=== PATIENT | female | born 1990 | race Caucasian/White ===

== ENCOUNTER 2020-12-16 15:49 | Emergency (ER) | payer MEDICAID ==
[~2020-12-16] VITALS: Ht 167.6 cm; Wt 61.8 kg
--- NOTE | 2020-12-16 16:18 | NUR ---
PT AMBULATORY FROM TRIAGE TO ROOM. PT CHANGED INTO GOWN, MONITORS IN PLACE. PT C/O OF BELL WITH PAIN 04/27. STATED " I DIDNT GET TO THE STORE IN TIME TO GET ADVIL BEFORE MY BELL GOT WORSE." NADN. CALL LIGHT WITHIN REACH
[2020-12-16] MEDS ORDERED: METOCLOPRAMIDE 5 MG/ML, 2ML ONE (17:17)
[2020-12-16] MEDS ORDERED: KETOROLAC 30 MG/1 ML ONE (17:17)
[2020-12-16] MEDS ORDERED: SODIUM CHLORIDE 0.9% 1,000ML IVBOLUS ONE (17:30)
[2020-12-16] MEDS ORDERED: KETOROLAC 30 MG/1 ML IVPush ONE (17:30)
[2020-12-16] MEDS ORDERED: METOCLOPRAMIDE 5 MG/ML, 2ML IVPush ONE (17:30)
--- NOTE | 2020-12-16 17:58 | NUR ---
TASK RN: PT MEDICATED PER EMAR, RESTING ON GURNEY WITH EYES CLOSED & LIGHTS DOWN, NO NEEDS AT THIS TIME, CALL LIGHT WITHIN REACH.
[2020-12-16 19:10] VITALS: BP 122/78
--- NOTE | 2020-12-16 20:16 | NUR ---
chart accessed d/t pt looking for lost phone. throughput rn notified family that phone was with security.
== END 2020-12-16 19:12 | disposition home or self-care (01) ==
LOC: ED 17:55
DX: R51.9 Headache, unspecified (principal); R11.2 Nausea with vomiting, unspecified; R10.9 Unspecified abdominal pain; F17.200 Nicotine dependence, unspecified, uncomplicated
CPT/HCPCS: 96361; 96374; 96375; 99284; J1885; J2765; J7030